=== PATIENT | female | born 1980 | race Caucasian/White ===

== ENCOUNTER 2016-12-06 14:55 | Emergency (ER) | payer SELFPAY ==
--- NOTE | ~2016-12-06 | ER ---
PATIENT'S NAME: JEREMY ANGELO [facility] AGE: 36 Y [address] ROOM: [place], [place] [address] LOCATION: ED ADMIT DATE: 12/06/2016 ER/Outpatient Report DISCHARGE DATE: 12/06/2016 FAMILY PHYSICIAN: PHYSICIAN, NO ATTENDING PHYSICIAN: Jimmie Salazar Time of Arrival: 1455. Time of Evaluation: 1505. CHIEF COMPLAINT: Nausea, vomiting, headache, been off her medications for 6 days. HISTORY OF PRESENT ILLNESS: This is a 36-year-old female who presents to the ER. She states that she has not been feeling well for the past 2 or 3 days. She states she has been off her Zoloft and gabapentin for the past 6 days and she has an appointment to see Amelia Zuleta on Wednesday to get those refilled. She states she has been off her medications before. She has felt like this after stopping those medications, but never has she been off her meds this long and has not felt this bad before. She has had some loose stools. No fevers. No troubles with urination. No back pain. She states she has a slight headache and she threw up twice last night. The patient denies any other problems at this time. ALLERGIES: NO KNOWN ALLERGIES. MEDICATIONS: Please see medication list in the nurse's notes. PAST MEDICAL HISTORY: Depression. PAST SURGERIES: Tonsillectomy, D and C, x2. SOCIAL HISTORY: She smokes a pack a day for the last 24 years. Denies any drug or alcohol use. REVIEW OF SYSTEMS: All systems reviewed and were negative with the exception of those discussed in the HPI. PHYSICAL EXAMINATION: VITAL SIGNS: Weight 68 kg taken. Blood pressure is 128/91, pulse 73, PATIENT'S NAME: EJREMY ANGELO [facility] AGE: 36 Y [address] ROOM: [place], [place] [id number] LOCATION: [facility] ADMIT DATE: 12/06/2016 ER/Outpatient Report DISCHARGE DATE: 12/06/2016 FAMILY PHYSICIAN: PHYSICIAN, NO ATTENDING PHYSICIAN: Jimmie Salazar respirations 20, temperature 96.9 degrees tympanically, and saturations 97% on room air. Ivy Coma Score is 15. GENERAL: Alert, well-developed female, in no acute distress. HEENT. Head: Normocephalic. Eyes: Pupils are equal and reactive to light. She does display moist mucous membranes. LUNGS: Clear to auscultation bilaterally. No wheezes or crackles. HEART: Regular rate and rhythm. ABDOMEN: Soft. She has generalized tenderness in all 4 quadrants with palpation. No guarding. No rebound tenderness. She has good bowel sounds throughout. No masses were palpated. EXTREMITIES: No clubbing or cyanosis. She has full range of motion of all limbs. LABORATORY DATA: CBC: White count is 6.5, hemoglobin is 10.7, platelets 294. CMS: Sodium 141, potassium 3.5, BUN 6, creatinine 0.8. Otherwise, unremarkable. IMPRESSION: 1. Nausea, vomiting. 2. Medication refill. ASSESSMENT AND PLAN: We did start her on IV here in the emergency room. We did give her some IV fluids along with 4 mg of Zofran. I gave her a dose of gabapentin 600 mg p.o. and Zoloft 150 mg p.o. here in the ER. The patient states that she is feeling better. We will dismiss her to home. She needs to continue to push fluids, monitor symptoms. I did write her prescriptions for Zoloft and gabapentin to get her by for the next week and she needs to see October Song on Wednesday. The patient understands and agrees with care. SWAPNA GOFF PA-C FOR MD CORI ROBINS/seda /[id number] d: 12/06/16 2144 t: 12/22/16 0910, OUTPATIENT REPORT
[~2016-12-06 14:55] MED LIST: AMBIEN5 MG PO; BUSPAR10 MG PO; CORTEF10 MG PO; CORTEF20 MG PO; DELTASONE1 MG; DESYREL50 MG PO; FEOSOL325 MG PO; IMODIUM2 MG PO; KLONOPIN0.5 MG PO; NEURONTIN600 MG PO; NEURONTIN800 MG PO; NICODERM (HABIT14 MG TOP; NORCO 5-325 MG1 TAB; PROVENTIL OR V6.7 GM INH; ZOLOFT50 MG PO
[2016-12-06 15:37] LABS: BASOPHIL % 0.3 %; EOSINOPHIL # 0.2 K/uL (0.0-0.5); EOSINOPHIL % 3.1 %; HEMOGLOBIN 10.7 g/dL (11.0-15.0); IMMATURE GRANULOCYTE % 0.3 %; LYMPHOCYTE # 2.5 K/uL (0.8-4.0); LYMPHOCYTE % 38.8 %; MCH 26.8 pg (27.0-34.0); MCHC 31.5 gm/dL (32.0-36.5); MONOCYTE # 0.4 K/uL (0.0-1.0); MONOCYTE % 6.3 %; MPV 10.6 fl (9.4-12.4); NEUTROPHIL # (ANC) 3.3 K/uL (1.8-7.8); NEUTROPHIL % 51.2 %; NRBC % 0 /100WBC (0-0.00); PLATELET COUNT 294 K/uL (150-450); RDW-CV 17.1 % (11.9-14.6); WBC 6.5 K/uL (4.0-11.0)
[2016-12-06 15:53] LABS: ALBUMIN 3.6 gm/dL (3.5-5.0); ALK PHOS 48 IU/L (33-138); ANION GAP 8.5 (10.0-19.0); AST 13 IU/L (10-40); BLOOD UREA NITROGEN 6 mg/dL (6-24); CALCIUM 8.4 mg/dL (8.5-10.5); CHLORIDE 109 mMol/L (96-110); CO2 27 mMol/L (22-32); CREATININE 0.8 mg/dL (0.5-1.1); POTASSIUM 3.5 mMol/L (3.7-5.1); SODIUM 141 mMol/L (135-145); TOTAL BILIRUBIN 0.2 mg/dL (0.0-1.5); TOTAL PROTEIN 6.8 g/dL (6.0-8.4)
[2016-12-06 15:54] LABS: ALT < 10 IU/L (12-78)
== END 2016-12-06 16:20 | disposition disaster alternative care site (69) ==
LOC: GMED 14:55
PROVIDERS: Emergency Medicine
DX: R11.2 Nausea with vomiting, unspecified (principal); F32.9 Major depressive disorder, single episode, unspecified; F17.210 Nicotine dependence, cigarettes, uncomplicated; Z76.0 Encounter for issue of repeat prescription; Z90.89 Acquired absence of other organs; Z79.899 Other long term (current) drug therapy; Z98.890 Other specified postprocedural states
CPT/HCPCS: J2405; J7030

== ENCOUNTER → 2017-01-10 | Emergency (ER) | payer SELFPAY | END | disposition disaster alternative care site (69) | LOC: GAMB 15:21 | DX: R45.851 Suicidal ideations (principal); R45.850 Homicidal ideations; Z79.899 Other long term (current) drug therapy ==